=== PATIENT | female | born 1970 ===

== ENCOUNTER 2018-01-10 21:40 | Emergency (ER) | payer BC ==
[2018-01-10 23:01] LABS: BASO # 0.1 K/uL (0.0-0.2); BASO % 0.6 % (0.0-2.0); EOS # 0.1 K/uL (0.0-0.7); EOS % 1.2 % (0.0-4.0); HEMOGLOBIN 14.3 g/dL (12.0-16.0); LYMPH # 2.4 K/uL (1.0-4.3); LYMPH % 25.9 % (20.0-40.0); MEAN CORPUSCULAR HEMOGLOBIN 29.1 pg (27.0-31.0); MEAN CORPUSCULAR HGB CONC 34.2 g/dL (33.0-37.0); MEAN PLATELET VOLUME 8.6 fl (7.2-11.7); MONO # 0.6 K/uL (0.0-0.8); NEUT # 6.1 K/uL (1.8-7.0); NEUT % 65.3 % (50.0-75.0); NRBC % 0.1 % (0.0-0.0); RBC 4.91 Mil/uL (3.80-5.20); RED CELL DISTRIBUTION WIDTH 13.6 % (11.5-14.5); WHITE BLOOD COUNT 9.3 K/uL (4.8-10.8)
[2018-01-10 23:11] LABS: BLOOD UREA NITROGEN 18 mg/dl (7-17); CALCIUM 9.5 mg/dL (8.4-10.2); GFR AFRICAN-AMERICAN > 60; GFR NON-AFRICAN AMERICAN > 60
[2018-01-10 23:15] LABS: INR 1.1; PARTIAL THROMBOPLASTIN TIME 53.1 Seconds (25.6-37.1); PROTHROMBIN TIME 12.3 Seconds (9.8-13.1)
[2018-01-10 23:22] LABS: B-TYPE NATRIURETIC PEPTIDE 159 pg/ml (0-450)
--- NOTE | 2018-01-10 23:34 | ED PDOC ---
HPI: Chest Pain Time Seen by Provider: 01/10/18 22:12 Chief Complaint (Nursing): Chest Pain Chief Complaint (Provider): Chest Pain History Per: Patient History/Exam Limitations: no limitations Onset/Duration Of Symptoms: Days (x7) Current Symptoms Are (Timing): Still Present Additional Complaint(s): 47 y/o female with a PMHx of chronic leg swelling, diabetes, HTN, depression and morbid obesity presents to the ED complaining of feeling more tired than usual, onset one week ago. Patient also is complaining of feeling depressed but does not have suicidal ideation nor homicidal ideation. Patient also reports of abdominal bloating but has not had any today. In addition, patient is complaining of some pain on the left side of her chest. Patient states she feels more tired at work. Patient reports a strong family history of cardiac abnormalities but no heart attacks. Patient states she googled her symptoms and is concerned of having heart failure. PMD: None Provided Past Medical History Reviewed: Historical Data, Nursing Documentation, Vital Signs Vital Signs: Last Vital Signs Temp 98.7 F 01/10/18 21:53 Pulse 90 01/10/18 21:53 Resp 20 01/10/18 21:53 BP 117/79 01/10/18 21:53 Pulse Ox 96 01/10/18 23:45 - Medical History PMH: Asthma, Bipolar Disorder, Depression, Diabetes, HTN - Surgical History Surgical History: No Surg Hx - Family History Family History: States: Unknown Family Hx Other Family History: Cardiac Abnormalities - Immunization History Hx Influenza Vaccination: Yes Hx Pneumococcal Vaccination: No - Home Medications Home Medications: Ambulatory Orders Medication Instructions Recorded Polymyxin/Trimethoprim Sulfate 1 drop OS Q4 #1 bottle 06/20/16 [Polytrim Ophth Soln] - Allergies Allergies/Adverse Reactions: Allergies Allergy/AdvReac Type Severity Reaction Status Date / Time seasonal Allergy RASH Uncoded 01/10/18 21:53 Review of Systems ROS Statement: Except As Marked, All Systems Reviewed And Found Negative Constitutional: Positive for: Other (Tired) Cardiovascular: Positive for: Chest Pain (left sided) Gastrointestinal: Positive for: Other (Abdominal bloating) Psych: Positive for: Depression. Negative for: Suicidal ideation Physical Exam - Reviewed Nursing Documentation Reviewed: Yes Vital Signs Reviewed: Yes - Physical Exam Appears: Positive for: No Acute Distress (but morbidly obese) Head Exam: Positive for: ATRAUMATIC, NORMOCEPHALIC Skin: Positive for: Normal Color, Warm, Dry Eye Exam: Positive for: Normal appearance, EOMI, PERRL Neck: Positive for: Normal, Painless ROM, Supple Cardiovascular/Chest: Positive for: Regular Rate, Rhythm. Negative for: Murmur Respiratory: Positive for: Normal Breath Sounds. Negative for: Respiratory Distress Gastrointestinal/Abdominal: Positive for: Normal Exam, Soft. Negative for: Tenderness Back: Positive for: Normal Inspection. Negative for: L CVA Tenderness, R CVA Tenderness, Vertebral Tenderness Extremity: Positive for: Normal ROM, Other (Bilateral non-pitting edema). Negative for: Deformity Neurologic/Psych: Positive for: Alert, Oriented (x3), Mood/Affect (Depressed affect). Negative for: Motor/Sensory Deficits - Laboratory Results Result Diagrams: 01/10/18 22:50 01/10/18 22:50 - ECG O2 Sat by Pulse Oximetry: 96 (RA) Pulse Ox Interpretation: Normal Medical Decision Making Medical Decision Making: A/P: 47 y/o with a PMHx of DM, HTN, Depression, chronic leg swelling, and morbid obesity presenting with chest pain, weakness and a depressed mood. -- Patient is comfortable with normal vital signs -- Presents with a non-ischemic EKG -- Patient is not at risk of harming herself or others. Symptoms are more factorial. -- Patient reports of taking weight loss medications and is currently going through menopause. -- Will check lab work to re-assure patient. -- Will advise a close follow-up with PMD. Time: 2249 Plan: -- EKG -- B-Type Natriuretic -- BMP -- Troponin I -- CBC with differentials -- PTT -- Prothrombin Time -- CXR Two Views -- Glucose, POC -- Toradol 30 mg IVP -- Ranger Aide 4050 --Workup negative --Advised patient she needs to followup with her PMD --Patient stable, well appearing, suitable for outpatient followup Scribe Attestation: Documented by Jorge Fitzpatrick acting as a scribe for Dr. Bart Turk MD. Provider Scribe Attestation: All medical record entries made by the Scribe were at my direction and personally dictated by me. I have reviewed the chart and agree that the record accurately reflects my personal performance of the history, physical exam, medical decision making, and the department course for this patient. I have also personally directed, reviewed, and agree with the discharge instructions and disposition. Disposition - Clinical Impression Clinical Impression: Atypical chest pain - Patient ED Disposition Is Patient to be Admitted: No - Disposition Referrals: [facility] [Outside] Disposition: Routine/Home Disposition Time: 23:47 Condition: GOOD Additional Instructions: Please followup with Dr. Kessler for a checkup in 2 - 3 days. Instructions: Chest Pain That Is Not Caused by the Heart (DC) Forms: [email or web address] (Romanian)
[2018-01-11 04:09] VITALS: BP 121/69; PULSE 77; RESP 14; TEMP 98.4; O2SAT 100
--- NOTE | 2018-01-11 09:15 | CARD ---
APPROVED REPORT Date of service: 01/10/2018 EKG Measurement Heart [id number] <Conclusion> Normal sinus rhythm Right bundle branch block Abnormal ECG
== END 2018-01-11 00:30 | disposition home or self-care (01) ==
LOC: H.ER 21:40
DX: R07.89 Other chest pain (principal)
CPT/HCPCS: 71046; 80048; 81025; 82948; 83880; 84484; 85025; 85610; 85730; 93005; 96374; 99283; J1885

== ENCOUNTER 2018-06-26 08:56 | Emergency (ER) | payer BC ==
[2018-06-26 09:00] VITALS: BMI 54.1
[2018-06-26 09:01] VITALS: TEMP 97.6; O2SAT 100
--- NOTE | 2018-06-26 10:47 | ED PDOC ---
HPI: Trauma/Fall - HPI Time Seen by Provider: 06/26/18 09:09 Chief Complaint (Nursing): Trauma Chief Complaint (Provider): I fell this morning History Per: Patient History/Exam Limitations: no limitations Location Of Injury: Right: Hand, Left: Hand, Anterior: Abdomen, Posterior: Back Posterior Full Body: 1 - pain 2 - pain Severity: Moderate Additional Complaint(s): 47yo female states fell on outstretched hands when walking to work on uneven ground. Did not strike head or neck. States she did strike her abdomen but hands and knees took most of impact. Notes pain to base of both hands and mild ab dominal and back discomfort. Denies headache, neck pain, weakness, numbness, dizziness, nausea or change vision. Notes recent depression since being taken of phenteramine for weight loss, where she lost about 40lbs but recently plateaued and PMD stopped medication. Has sleep apnea also and recently not sleeping well since her CPAP machine broke. Had fleeting thoughts of "dying" but denies suicidal thoughts outright or plan. Past Medical History Reviewed: Historical Data, Nursing Documentation, Vital Signs Vital Signs: Last Vital Signs Temp 97.6 F 06/26/18 09:00 Pulse 80 06/26/18 09:00 Resp 18 06/26/18 09:00 BP 145/85 06/26/18 09:00 Pulse Ox 100 06/26/18 09:00 - Medical History PMH: Asthma, Bipolar Disorder, Depression, Diabetes, HTN Other PMH: obesity - Surgical History Surgical History: - Family History Family History: States: Unknown Family Hx - Living Arrangements Living Arrangements: With Family - Social History Current smoker - smoking cessation education provided: No - Immunization History Hx Influenza Vaccination: Yes Hx Pneumococcal Vaccination: No - Home Medications Home Medications: Ambulatory Orders Medication Instructions Recorded Polymyxin/Trimethoprim Sulfate 1 drop OS Q4 #1 bottle 06/20/16 [Polytrim Ophth Soln] Ibuprofen [Motrin Tab] 600 mg PO Q6 PRN #15 tab 06/26/18 - Allergies Allergies/Adverse Reactions: Allergies Allergy/AdvReac Type Severity Reaction Status Date / Time seasonal Allergy RASH Uncoded 06/26/18 09:06 Review of Systems Constitutional: Negative for: Fever Eyes: Negative for: Pain, Vision Change ENT: Negative for: Nose Discharge, Throat Pain Cardiovascular: Negative for: Chest Pain Respiratory: Negative for: Cough, Shortness of Breath Gastrointestinal: Positive for: Abdominal Pain - ECG O2 Sat by Pulse Oximetry: 100 Medical Decision Making Medical Decision Making: pt declined xrays of hands stating "i dont think theyre broken" abd pain improved, re-eval 1110am reveals neg abd tenderness crisis eval performed and clear for DC from Dr Hyman referred to [facility] for psych iatrist evaluation. Disposition - Clinical Impression Clinical Impression: Hand contusion, Strain of abdominal wall, Depression - Patient ED Disposition Is Patient to be Admitted: No Counseled Patient/Family Regarding: Studies Performed, Diagnosis, Need For Followup, Rx Given - Disposition [facility]errals[facility] Disposition: Routine/Home Disposition Time: 11:10 Condition: STABLE Additional Instructions: Return to ER for any worse or new symptoms. Take medication as directed. Followup with [facility]placed [facility] for further treatment. Prescriptions: Ibuprofen [Motrin Tab] 600 mg PO Q6 PRN #15 tab PRN Reason: Pain, Moderate (4-7) Instructions: Depression, Abdominal Muscle Strain, Contusion (DC) Forms: [employer] (Danish)
[2018-06-26 11:35] VITALS: BP 140/82; PULSE 83; RESP 28
== END 2018-06-26 11:30 | disposition home or self-care (01) ==
LOC: H.ER 08:56
DX: S60.229A Contusion of unspecified hand, initial encounter (principal); S39.011A Strain of muscle, fascia and tendon of abdomen, initial encounter; F32.9 Major depressive disorder, single episode, unspecified; E11.9 Type 2 diabetes mellitus without complications; E66.9 Obesity, unspecified; I10 Essential (primary) hypertension; J45.909 Unspecified asthma, uncomplicated; W18.30XA Fall on same level, unspecified, initial encounter